=== PATIENT | female | born 1980 | race Caucasian/White ===

== ENCOUNTER 2021-04-05 13:10 | Emergency (ER) | payer MEDICAID, OTHER ==
--- OUTSIDE RECORDS SUMMARY | 2021-04-05 13:16 | XMS REPORT | Clinical Summary ---
Demographics Home Phone Preferred Language Unknown Marital Status Jainism Affiliation Unknown Race White Ethnic Group Unknown Author Author [facility] Address Unknown Phone Unavailable Care Team Providers Care Felt Hanger Name Role Phone PCP Unavailable Source Comments [facility] ([facility]) documents do not appear in the [facility] Allergies Not on File Medications Please verify current medications with patient. Not on file Active Problems Not on file Social History Date Tobacco Use Types Packs/Day Years Used Never Assessed Sex Assigned at Date Recorded Not on file Last Filed Vital Signs Not on file Plan of Treatment Health Maintenance Due Date Last Done Comments Cervical Cancer Screening 1980 HPV/Cotest 1980 Pap Smear 1980 COVID-19 Vaccine (1) 1991 Influenza Vaccine (#1) 2021 HPV Vaccine Aged Out No longer eligible based on patient's age to complete this topic Hepatitis A Vaccine Aged Out No longer eligible based on patient's age to complete this topic Hepatitis B Vaccine Aged Out No longer eligible based on patient's age to complete this topic Hib Vaccine Aged Out No longer eligible based on patient's age to complete this topic IPV Vaccine Aged Out No longer eligible based on patient's age to complete this topic Meningococcal Vaccine Aged Out No longer eligib le based on patient's age to (MCV4) complete this topic Pneumococcal Vaccine: Aged Out No longer eligib le based on patient's age to Pediatrics (0 to 5 Years) complete this topic and At-Risk Patients (6 to 64 Years) Rotavirus Vaccine Aged Out No longer eligible based on patient's age to complete this topic Results Not on filefrom Last 3 Months
--- NOTE | 2021-04-05 13:27 | ED GU-Female ---
General Chief Complaint: Back Problems Stated Complaint: NAUSEA; LT FLANK PAIN Source: patient Exam Limitations: no limitations History of Present Illness Date Seen by Provider: Apr 05, 2021 Time Seen by Provider: 13:20 Initial Comments 40-year-old female with no significant past medical history coming in due to acute left flank pain that started a couple hours ago. It is sharp, severe, constant, associated with nausea and nonbloody nonbilious vomiting. She is never had pain like this before. Denies any history of kidney infection or kidney stones. Has had a UTI years ago but felt nothing like this. Denies any dysuria, hematuria, and is making urine. Otherwise denying any other acute complaints including any fever. Allergies and Home Medications Allergies Coded Allergies: No Known Drug Allergies (Unverified , 04/05/21) Patient Home Medication List Home Medication List Reviewed: Yes Ibuprofen (Ibuprofen) 600 Mg Tablet, 600 MG PO Q6H Prescribed by: ANITA BARRERA on 04/05/21 1448 Ondansetron (Ondansetron Odt) 4 Mg Tab.rapdis, 4 MG PO Q6H Prescribed by: ANITA BARRERA on 04/05/21 1448 Oxycodone HCl (Oxycodone HCl) 5 Mg Tablet, 5 MG PO Q6H Prescribed by: ANITA BARRERA on 04/05/21 1448 Tamsulosin HCl (Flomax) 0.4 Mg Cap, 0.4 MG PO DAILY Prescribed by: ANITA BARRERA on 04/05/21 1448 Review of Systems Review of Systems Constitutional: No fever EENTM: see HPI Respiratory: no symptoms reported Cardiovascular: no symptoms reported Gastrointestinal: No abdominal pain; nausea, vomiting Genitourinary: flank pain Musculoskeletal: no symptoms reported Skin: no symptoms reported Psychiatric/Neurological: No Symptoms Reported Endocrine: No Symptoms Reported Hematologic/Lymphatic: No Symptoms Reported All Other Systemes Reviewed Negative Unless Noted: Yes Past [id number]-Stsqdw-Wcrjvy Hx Patient Social History Tobacco Use?: No Past Medical History Surgeries: No Physical Exam Vital Signs Vital Signs - First Documented 04/05/21 13:23 Temp 36.6 Pulse 88 Resp 16 Pulse Ox 100 O2 Delivery Room Air Capillary Refill : Height, Weight, BMI Height: '" Weight: lbs. oz. kg; BMI Method: General Appearance: WD/WN, mild distress HEENT: PERRL/EOMI, normal ENT inspection, pharynx normal Neck: non-tender, full range of motion, supple, normal inspection Cardiovascular: regular rate, rhythm, no edema, no murmur Respiratory: chest non-tender, lungs clear, normal breath sounds, no respiratory distress, no accessory muscle use Gastrointestinal: normal bowel sounds, non tender, soft; No distended, No guarding, No rebound Back: normal inspection, no vertebral tenderness, CVA tenderness (L) Extremities: normal range of motion, non-tender, normal inspection, no pedal edema, no calf tenderness, normal capillary refill Neurologic/Psychiatric: no motor/sensory deficits, alert, normal mood/affect Skin: normal color, warm/dry Lymphatic: no adenopathy Progress/Results/Core Measures Suspected Sepsis SIRS Temperature: Pulse: Respiratory Rate: Laboratory Tests 04/05/21 13:35: White Blood Count 13.4H Blood Pressure / Mean: Laboratory Tests 04/05/21 13:35: Platelet Count 339 04/05/21 13:55: Creatinine 1.00, Total Bilirubin 0.3 Results/Orders Lab Results Laboratory Tests Test 04/05/21 13:28 04/05/21 13:35 04/05/21 13:55 Range/Units Urine Color YELLOW Urine Clarity CLOUDY Urine pH 5.5 5-9 Urine Specific [place] >=1.030 1.016-1.022 Urine Protein TRACE H NEGATIVE Urine Glucose (UA) NEGATIVE NEGATIVE Urine Ketones NEGATIVE NEGATIVE Urine Nitrite NEGATIVE NEGATIVE Urine Bilirubin NEGATIVE NEGATIVE Urine Urobilinogen 0.2 < = 1.0 MG/DL Urine Leukocyte Esterase NEGATIVE NEGATIVE Urine RBC (Auto) 3+ H NEGATIVE Urine RBC 50-100 H /HPF Urine WBC 0-2 /HPF Urine Squamous Epithelial Cells RARE /HPF Urine Crystals NONE /LPF Urine Bacteria NEGATIVE /HPF Urine Casts NONE /LPF Urine Mucus SMALL H /LPF Urine Culture Indicated NO White Blood Count 13.4 H 4.3-11.0 10^3/uL Red Blood Count 5.09 3.80-5.11 10^6/uL Hemoglobin 14.5 11.5-16.0 g/dL Hematocrit 46 35-52 % Mean Corpuscular Volume 90 80-99 fL Mean Corpuscular Hemoglobin 28 25-34 pg Mean Corpuscular Hemoglobin Concent 32 32-36 g/dL Red Cell Distribution Width 16.1 H 10.0-14.5 % Platelet Count 339 130-400 10^3/uL Mean Platelet Volume 10.7 9.0-12.2 fL Immature Granulocyte % (Auto) 0 % Neutrophils (%) (Auto) 72 42-75 % Lymphocytes (%) (Auto) 20 12-44 % Monocytes (%) (Auto) 7 0-12 % Eosinophils (%) (Auto) 1 0-10 % Basophils (%) (Auto) 1 0-10 % Neutrophils # (Auto) 9.6 H 1.8-7.8 X 10^3 Lymphocytes # (Auto) 2.6 1.0-4.0 X 10^3 Monocytes # (Auto) 0.9 0.0-1.0 X 10^3 Eosinophils # (Auto) 0.2 0.0-0.3 10^3/uL Basophils # (Auto) 0.1 0.0-0.1 10^3/uL Immature Granulocyte # (Auto) 0.0 0.0-0.1 10^3/uL Sodium Level 141 135-145 MMOL/L Potassium Level 3.7 3.6-5.0 MMOL/L Chloride Level 104 98-107 MMOL/L Carbon Dioxide Level 24 21-32 MMOL/L Anion Gap 13 5-14 MMOL/L Blood Urea Nitrogen 13 7-18 MG/DL Creatinine 1.00 0.60-1.30 MG/DL Estimat Glomerular Filtration Rate 61 BUN/Creatinine Ratio 13 Glucose Level 111 H 70-105 MG/DL Calcium Level 8.8 8.5-10.1 MG/DL Corrected Calcium 9.0 8.5-10.1 MG/DL Total Bilirubin 0.3 0.1-1.0 MG/DL Aspartate Amino Transf (AST/SGOT) 19 5-34 U/L Alanine Aminotransferase (ALT/SGPT) 20 0-55 U/L Alkaline Phosphatase 56 40-136 U/L Total Protein 6.4 6.4-8.2 GM/DL Albumin 3.8 3.2-4.5 GM/DL Lipase 33 8-78 U/L My Orders Orders - ANITA BARRERA MD Ed Iv/Invasive Line Start (04/05/21 13:27) Urine Bedside (04/05/21 13:27) Cbc With Automated Diff (04/05/21 13:27) Comprehensive Metabolic Panel (04/05/21 13:27) Lipase (04/05/21 13:27) Ua Culture If Indicated (04/05/21 13:27) Fentanyl Inj (Sublimaze Injection) (04/05/21 13:30) Ondansetron Injection (Zofran Injectio (04/05/21 13:30) Lactated Ringers (Lr 1000 Ml Iv Solution (04/05/21 13:30) Ct Abd/Pelvis Wo(Kidney Stone) (04/05/21 13:27) Ketorolac Injection (Toradol Injection) (04/05/21 14:45) Tamsulosin Capsule (Flomax Capsule) (04/05/21 14:32) Abdomen (Kub) 1 View (04/05/21 14:32) Ondansetron Injection (Zofran Injectio (04/05/21 15:00) Medications Given in ED Current Medications Medications Dose Ordered Sig/Chan Route Start Time Stop Time Status Last Admin Dose Admin Fentanyl Citrate 100 mcg ONCE ONCE IVP 04/05/21 13:30 04/05/21 13:31 DC 04/05/21 13:56 100 MCG Ketorolac Tromethamine 15 mg ONCE ONCE IVP 04/05/21 14:45 04/05/21 14:46 DC 04/05/21 14:45 15 MG Ondansetron HCl 4 mg ONCE ONCE IVP 04/05/21 13:30 04/05/21 13:31 DC 04/05/21 13:56 4 MG Ondansetron HCl 4 mg ONCE ONCE IVP 04/05/21 15:00 04/05/21 15:01 DC 04/05/21 14:59 4 MG Vital Signs/I&O 04/05/21 13:23 Temp 36.6 Pulse 88 Resp 16 B/P (MAP) Pulse Ox 100 O2 Delivery Room Air Capillary Refill : Progress Note : Progress Note 40-year-old female with above history coming in due to left flank pain with nausea and vomiting. ABCs were intact and vitals were stable on presentation. Physical exam with left flank tenderness and she does appear to be in significant pain. An IV was placed and she was given fentanyl for pain control, Zofran for nausea, and IV fluids for the significant amount of vomiting. Biggest concern is for a kidney stone versus kidney infection. CT abdomen and pelvis without contrast ordered and on my interpretation she does have a stone in the left ureter with mild hydronephrosis. Kidney function is normal with a creatinine of 1. Urinalysis without evidence of infection. Was later given Toradol and a repeat dose of Zofran. On reassessment, she was sleeping, comfortable, and had significant improvement. I gave her information on how to follow-up with your urologist and recommend she call in the morning. She was then discharged home in stable condition with strict return precautions. Diagnostic Imaging Diagonstic Imaging: CT Plain Films/CT/US/NM/MRI: abdomen, pelvis Comments [facility] [place], [place] NAME: MARIANNA TUCKER Rebecca [facility] REC#: [id number] PT STATUS: REG ER : 1980 PHYSICIAN: ANITA BARRERA MD ADMIT DATE: 04/05/21/ER FS Draft Date of Exam:04/05/21 CT ABD/PELVIS WO(KIDNEY STONE) EXAMINATION: CT abdomen and pelvis without contrast. TECHNIQUE: Multiple contiguous axial images were obtained through the abdomen and pelvis without the use of intravenous contrast. All CT scans use one or more of the following dose optimizing techniques: automated exposure control, MA and/or KvP adjustment based on patient size and exam type or iterative reconstruction. HISTORY: Left flank pain COMPARISON: 02/09/2007 FINDINGS: Lung bases: Bibasilar dependent atelectasis. Solid organs: The liver is normal. The gallbladder is normal. There is no biliary ductal dilation. Pancreas is normal. Spleen is normal. Adrenal glands are normal. There is a 0.6 cm calculus within the proximal left ureter resulting in mild left hydronephrosis and hydroureter. There are additional bilateral nonobstructing renal calculi measuring up to 0.5 cm. 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 There is a left renal cyst which requires no follow-up. Bowel: The stomach and small bowel are normal without obstruction. There is scattered colonic diverticulosis. The appendix is normal. Peritoneum: There is no intraperitoneal free fluid or free air. No suspicious lymphadenopathy. Vasculature: Normal without aneurysm. Musculoskeletal: Degenerative changes of the spine without suspicious osseous lesion or compression fracture. Pelvis: The uterus and adnexa are normal. The urinary bladder is normal. IMPRESSION: 1. A 0.6 cm calculus within the proximal left ureter resulting in mild left hydronephrosis. 2. Findings suggestive of medullary nephrocalcinosis with additional nonobstructing renal calculi measuring up to 0.5 cm. 3. Colonic diverticulosis without findings diverticulitis. Dictated on workstation # [id number] Dict: 04/05/21 1416 Trans: 04/05/21 1422 [facility] [id number] Interpreted by: ANIVAL COBIAN DO Electronically signed by: Departure Impression Primary Impression: Ureterolithiasis Disposition: HOME, SELF-CARE Condition: Stable Departure-Patient Inst. Decision time for Depature: 15:20 Referrals: VALERY BRYANT APRN (PCP) Primary Care Physician [facility]/ (Family) Primary Care Physician CHARLIE ENGLAND MD Patient Instructions: Kidney Stones in Adults Add. Discharge Instructions: You were seen in the emergency department for left flank pain. Unfortunately you have a kidney stone that is passing down through your system and eventually you will urinate out. This can take anywhere from a couple hours to a couple of weeks to happen. I recommend peeing through a strainer, taking the oxycodone and ibuprofen for pain control. Take Zofran for nausea. Also take Flomax which helps relax the smooth muscles which could theoretically help you pass the stone easier. Please call Dr. England's office and schedule an appointment as sometimes they have to do a procedure to remove the stone. If you have any fever, pain that is uncontrollable, vomiting that is uncontrollable, or any other concerns then please come back to the ER. All discharge instructions reviewed with patient and/or family. Voiced understanding. Scripts Ibuprofen (Ibuprofen) 600 Mg Tablet 600 MG PO Q6H for 7 Days, #28 TAB Prov: ANITA BARRERA MD 04/05/21 Tamsulosin HCl (Flomax) 0.4 Mg Cap 0.4 MG PO DAILY for 21 Days, #21 CAP Prov: ANITA BARRERA MD 04/05/21 Ondansetron (Ondansetron Odt) 4 Mg Tab.rapdis 4 MG PO Q6H for Nausea/Vomiting for 5 Days, #20 TAB 0 Refills Prov: ANITA BARRERA MD 04/05/21 Oxycodone HCl (Oxycodone HCl) 5 Mg Tablet 5 MG PO Q6H for Pain for 3 Days, #12 TAB 0 Refills Prov: ANITA BARRERA MD 04/05/21 Work/School Note: Work Release Form Date Seen in the Emergency Department: Apr 05, 2021 Return to Work: Apr 07, 2021 Restrictions: No Restrictions ANITA BARRERA MD Apr 05, 2021 13:27
[2021-04-05] MEDS ORDERED: ONDANSETRON 4 MG/2 ML (SDV) Z0FRAN IVP ONE ×2 (13:30→15:00)
[2021-04-05] MEDS ORDERED: LACTATED RINGERS 1,000 ML IV SCH (13:30)
[2021-04-05] MEDS ORDERED: fentaNYL INJ 100 MCG/2 ML AMP IVP ONE (13:30)
[2021-04-05 13:47] LABS: CLARITY,URINE CLOUDY; COLOR,URINE YELLOW; PH,URINE 5.5 (5-9)
[2021-04-05 13:48] LABS: BILIRUBIN,URINE NEGATIVE (NEGATIVE); GLUCOSE, URINE (UA) NEGATIVE (NEGATIVE); KETONES,URINE NEGATIVE (NEGATIVE); LEUKOCYTE ESTERASE ,URINE NEGATIVE (NEGATIVE); NITRITE,URINE NEGATIVE (NEGATIVE); PROTEIN,URINE TRACE (NEGATIVE); RBC,URINE 50-100 /HPF; WBC,URINE 0-2 /HPF
[2021-04-05 13:49] LABS: BACTERIA,URINE NEGATIVE /HPF; SQUAMOUS EPITHELIAL CELL,UR RARE /HPF
[2021-04-05 13:50] LABS: HEMATOCRIT 46 % (35-52); HEMOGLOBIN 14.5 g/dL (11.5-16.0); MEAN CORPUSCULAR HEMOGLOBIN 28 pg (25-34); MEAN CORPUSCULAR HGB CONC 32 g/dL (32-36); MEAN CORPUSCULAR VOLUME 90 fL (80-99); MEAN PLATELET VOLUME 10.7 fL (9.0-12.2); PLATELET COUNT 339 10^3/uL (130-400); WHITE BLOOD COUNT 13.4 10^3/uL (4.3-11.0)
[2021-04-05 13:51] LABS: BASOPHILS % (AUTO) 1 % (0-10); LYMPHOCYTES % (AUTO) 20 % (12-44); MONOCYTES % (AUTO) 7 % (0-12); NEUTROPHILS % (AUTO) 72 % (42-75)
[2021-04-05 13:52] LABS: BASOPHILS # (AUTO) 0.1 10^3/uL (0.0-0.1); EOSINOPHILS # (AUTO) 0.2 10^3/uL (0.0-0.3); EOSINOPHILS % (AUTO) 1 % (0-10); LYMPHOCYTES # (AUTO) 2.6 X 10^3 (1.0-4.0); MONOCYTES # (AUTO) 0.9 X 10^3 (0.0-1.0); NEUTROPHILS # (AUTO) 9.6 X 10^3 (1.8-7.8)
--- NOTE | 2021-04-05 14:22 | Diagnostic Imaging Report ---
EXAMINATION: CT abdomen and pelvis without contrast. TECHNIQUE: Multiple contiguous axial images were obtained through the abdomen and pelvis without the use of intravenous contrast. All CT scans use one or more of the following dose optimizing techniques: automated exposure control, MA and/or KvP adjustment based on patient size and exam type or iterative reconstruction. HISTORY: Left flank pain COMPARISON: 02/09/2007 FINDINGS: Lung bases: Bibasilar dependent atelectasis. Solid organs: The liver is normal. The gallbladder is normal. There is no biliary ductal dilation. Pancreas is normal. Spleen is normal. Adrenal glands are normal. There is a 0.6 cm calculus within the proximal left ureter resulting in mild left hydronephrosis and hydroureter. There are additional bilateral nonobstructing renal calculi measuring up to 0.5 cm. 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 There is a left renal cyst which requires no follow-up. Bowel: The stomach and small bowel are normal without obstruction. There is scattered colonic diverticulosis. The appendix is normal. Peritoneum: There is no intraperitoneal free fluid or free air. No suspicious lymphadenopathy. Vasculature: Normal without aneurysm. Musculoskeletal: Degenerative changes of the spine without suspicious osseous lesion or compression fracture. Pelvis: The uterus and adnexa are normal. The urinary bladder is normal. IMPRESSION: 1. A 0.6 cm calculus within the proximal left ureter resulting in mild left hydronephrosis. 2. Findings suggestive of medullary nephrocalcinosis with additional nonobstructing renal calculi measuring up to 0.5 cm. 3. Colonic diverticulosis without findings diverticulitis. Dictated by: Dictated on workstation # [id number]
[2021-04-05 14:28] LABS: ALBUMIN 3.8 GM/DL (3.2-4.5); BILIRUBIN,TOTAL 0.3 MG/DL (0.1-1.0); CALCIUM 8.8 MG/DL (8.5-10.1); POTASSIUM 3.7 MMOL/L (3.6-5.0); TOTAL PROTEIN 6.4 GM/DL (6.4-8.2)
[2021-04-05] MEDS ORDERED: TAMSULOSIN 0.4 MG (FLOMAX) CAP PO STA (14:32)
[2021-04-05] MEDS ORDERED: KETOROLAC 30 MG/ML VIAL IVP ONE (14:45)
[2021-04-05] MEDS ORDERED: IBUP-1773 PO (14:48)
[2021-04-05] MEDS ORDERED: ONDA4TAB11 PO (14:48)
[2021-04-05] MEDS ORDERED: OXYC5TAB PO (14:48)
[2021-04-05] MEDS ORDERED: TMSL.4C PO (14:48)
--- NOTE | 2021-04-05 14:51 | Diagnostic Imaging Report ---
EXAMINATION: Abdomen 1 view HISTORY: Stone followup COMPARISON: 04/05/2021 FINDINGS: There is a moderate amount of gas and stool throughout the colon. Nonobstructive bowel gas pattern. There is a 0.6 cm calculus seen within the expected location of proximal left ureter. Multiple tiny punctate calcifications are seen overlying the right and left kidneys. The lung bases are clear. The osseous structures are intact. IMPRESSION: 1. Moderate stool burden. 2. A 0.6 cm likely proximal left ureteral calculus. Additional bilateral nonobstructing renal calculi. Dictated by: Dictated on workstation # [id number]
[2021-04-05 15:34] VITALS: BP 155/65
== END 2021-04-05 15:22 | disposition home or self-care (01) ==
LOC: EDUNIT# 13:10 → ER FS 13:11
DX: N13.2 Hydronephrosis with renal and ureteral calculous obstruction (principal)
CPT/HCPCS: 36415; 74018; 74176; 80053; 81000; 83690; 84703; 85025